=== PATIENT | female | born 1990 | race Caucasian/White ===

== ENCOUNTER 2017-11-22 01:41 | Emergency (ER) | payer OTHER ==
[~2017-11-22] VITALS: Ht 177.8 cm; Wt 77.0 kg
[~2017-11-22 01:41] MED LIST: TRAM50 PO
[2017-11-22 01:46] VITALS: BP 125/82; PULSE 89; RESP 18; TEMP 98.2; O2SAT 100
[2017-11-22] MEDS ORDERED: METOCLOPRAMIDE INJ 10 MG in SODIUM CHLORIDE 0.9% INJ 50 ML IV ONE (03:45)
[2017-11-22] MEDS ORDERED: SODIUM CHLOR 0.9% 1000 ML INJ 1,000 ML IV ONE (03:45)
--- NOTE | 2017-11-22 03:45 | PD ---
HPI Chief Complaint: Headache Time Seen by Provider: 03:34 Travel History International Travel<30 days: No Contact w/Intl Traveler<30days: No Traveled to known affect area: No History of Present Illness HPI 27yo F with PMH of migraine headache here with c/o right sided headache for 2 hours. Said it feels nothing like her usual headache and is sharp, severe. Also with twitching of right eye. Denies any fever, neck stiffness, visual changes, chest pain, sob, n/v, abdominal pain, focal weakness or numbness. Denies any history of family history of brain aneurysm. PFSH Past Medical History ADD: Yes Blood Disorders: No Depression: Yes Cancer: No Cardiovascular Problems: No Diminished Hearing: No Endocrine: No Gastrointestinal Disorders: Yes (HEART BURN) Genitourinary: Yes (KIDNEY STONE) Musculoskeletal: Yes (FX RIGHT WRIST) Neurologic: Yes (HEADACHE) Psychiatric: Yes Reproductive: Yes Respiratory: No Integumentary: Yes (F/U WITH DERMATOLOGY, SKIN ? ALLERGY) Immunizations Current: No Tetanus Vaccination: < 5 Years Influenza Vaccination: No ?: Unknown LMP: 11/09/17 : 2 Para: 1 Miscarriage: 1 Dilation and Curettage (D&C): Yes Past Surgical History Appendectomy: Yes (JUL 2013) Oral Surgery: Yes (WISDOM TEETH EXTRACTION) Pacemaker: No Other Surgery: Yes (APPENDECTOMY) Social History Alcohol Use: Yes (socially) Tobacco Use: Yes (3PPD) Substance Use: No Allergies-Medications (Allergen,Severity, Reaction): Coded Allergies: sulfamethoxazole (Unverified Allergy, Severe, Anaphylaxis, 11/22/17) trimethoprim (Unverified Allergy, Severe, Anaphylaxis, 11/22/17) *MDRO Multi-Drug Resistant Organism (Verified Adverse Reaction, Unknown, ) MRSA PCR Screen negative 01/23/15. Reported Meds & Prescriptions Reported Meds & Active Scripts Active Tylenol (Acetaminophen) 325 Mg Tab 650 Mg PO Q6H PRN Review of Systems Except as stated in HPI: all other systems reviewed are Neg Physical Exam Narrative GENERAL: 27yo F in mild distress. SKIN: Focused skin assessment warm/dry. HEAD: Atraumatic. Normocephalic. EYES: Pupils equal and round at 4mm bilaterally. EOMI. ENT: No nasal bleeding or discharge. Mucous membranes pink and moist. NECK: No nuchal rigidity. CARDIOVASCULAR: Regular rate and rhythm. No murmur appreciated. RESPIRATORY: No accessory muscle use. Clear to auscultation. Breath sounds equal bilaterally. GASTROINTESTINAL: Abdomen soft, non-tender, nondistended. MUSCULOSKELETAL: No obvious deformities. No clubbing. No cyanosis. No edema. NEUROLOGICAL: Awake and alert. No obvious cranial nerve deficits. Motor grossly within normal limits. Sensation intact. Normal speech. Data Data Last Documented VS Vital Signs Date Time Temp Pulse Resp B/P (MAP) Pulse Ox O2 Delivery O2 Flow Rate FiO2 11/22/17 03:33 88 18 100 Room Air 11/22/17 01:46 98.2 125/82 (96) Orders Orders Ed Urine Pregnancytest Poc (11/22/17 03:41) Ct Brain W/O Iv Contrast(Rout) (11/22/17 ) Metoclopramide Inj (Reglan Inj) (11/22/17 03:45) Sodium Chlor 0.9% 1000 Ml Inj (Ns 1000 M (11/22/17 03:45) Urinalysis - C+S If Indicated (11/22/17 03:59) Metoclopramide Inj (Reglan Inj) (11/22/17 04:45) Labs Laboratory Tests Test 11/22/17 04:00 Urine Color YELLOW Urine Turbidity CLEAR Urine pH 5.5 Urine Specific [place] 1.031 Urine Protein NEG mg/dL Urine Glucose (UA) NEG mg/dL Urine Ketones NEG mg/dL Urine Occult Blood NEG Urine Nitrite NEG Urine Bilirubin NEG Urine Leukocyte Esterase NEG Urine RBC 0-3 /hpf Urine Squamous Epithelial Cells 0-5 /hpf Urine Amorphous Sediment FEW Urine Mucus FEW /lpf Microscopic Urinalysis Comment CULT NOT INDICATED MDM Medical Decision Making Medical Screen Exam Complete: Yes Emergency Medical Condition: Yes Differential Diagnosis Migraine headache vs. sinus headache vs. tension headache vs. anxiety vs. ICH Narrative Course 27yo F with right sided headache for 2 hours. Pt said this headache is unlike anything she has had so CT brain was order since onset of headache is less than 6 hours. Pt is well appearing but insist this is nothing like her migraine. Ordered reglan, NS IVF and CT brain. Urine negative. Pt wanted to talk to me again and ask if I can check her urine because she just started having pain with urination today. UA showed few mucous. Negative. leukocyte. Culture not indicated. While waiting for CT scan, pt said she now wants to go home and she doesnt want the CT anymore. Pt understands risks of leaving against medical advice which include . AMA: The risks of leaving against medical advice without further evaluation treatment were discussed with the patient. These risks include cardiac dysfunction, cardiac dysrhythmia, possible heart attack, possible stroke or . The patient indicated understanding of these risks and appeared to have the capacity to make this decision. Diagnosis Primary Impression: Headache Patient Instructions: General Instructions Departure Forms: Tests/Procedures Additional Instructions: Please return to the ED if you change your mind. Med/Other Pt SpecificInfo: Prescription(s) given Scripts Acetaminophen (Tylenol) 325 Mg Tab 650 MG PO Q6H Y for PAIN SCALE 1 TO 4, #20 TAB 0 Refills Prov: Patrizia Trotter 11/22/17 Disposition: 07 AGAINST MEDICAL ADVICE Condition: Stable Patrizia Trotter DO Nov 22, 2017 03:45
[2017-11-22 04:15] LABS: BILIRUBIN, URINE NEG (NEG); BLOOD, URINE NEG (NEG); GLUCOSE,URINE NEG (NEG); KETONE, URINE NEG (NEG); NITRITE,URINE NEG (NEG); PH, URINE 5.5 (5.0-8.5); URINE LEUKOCYTE ESTERASE NEG (NEG)
[2017-11-22 04:25] LABS: MUCUS URINE FEW /lpf (OCC); URINE COLOR YELLOW (YELLW/STRAW)
[2017-11-22 04:26] LABS: AMORPHOUS SEDIMENT, URINE FEW; SQUAMOUS EPITHELIAL CELL URINE 0-5 /hpf (0-5)
[2017-11-22 04:28] LABS: RBC, URINE 0-3 /hpf (0-3)
[2017-11-22] MEDS ORDERED: METOCLOPRAMIDE HCL 10 MG/2 ML VIAL IV PUSH ONE (04:45)
[2017-11-22] MEDS ORDERED: TYLE325T PO (04:47)
[2017-11-22 04:55] VITALS: BP 122/84; PULSE 86; RESP 18; O2SAT 98
== END 2017-11-22 05:05 | disposition left against medical advice (07) ==
LOC: PHED 01:41
DX: R51 Headache (principal); F32.9 Major depressive disorder, single episode, unspecified; F17.210 Nicotine dependence, cigarettes, uncomplicated; Z88.2 Allergy status to sulfonamides; Z88.8 Allergy status to other drugs, medicaments and biological substances
CPT/HCPCS: 81001; 84703; 96360; 99283; J2765; J7030

== ENCOUNTER 2018-01-28 04:01 | Emergency (ER) | payer SELFPAY ==
[~2018-01-28] VITALS: Ht 177.8 cm; Wt 72.7 kg
[~2018-01-28 04:01] MED LIST changes: -TRAM50 PO; +TYLE325T PO
[2018-01-28 04:02] VITALS: BP 137/74; PULSE 96; RESP 18; TEMP 97.7; O2SAT 100
[2018-01-28] MEDS ORDERED: IOHEXOL 350 MG/ML 10 ML VIAL (for RAD DIAG) IVCONTRAST ONE (04:02)
[2018-01-28] MEDS ORDERED: KETOROLAC TROMETHAMINE 30 MG/ML (IVP) VIAL IVP ONE (04:30)
[2018-01-28] MEDS ORDERED: SODIUM CHLORIDE 0.9% FLUSH 10 ML FLUSH IV FLUSH PRN (04:30)
[2018-01-28 04:40] VITALS: O2SAT 96
--- NOTE | 2018-01-28 04:40 | PD ---
HPI Chief Complaint: Abdominal Pain Time Seen by Provider: 04:21 Travel History International Travel<30 days: No Contact w/Intl Traveler<30days: No Traveled to known affect area: No History of Present Illness HPI 27-year-old female complains of left-sided low rib cage pain and left-sided abdominal pain. Patient states that symptoms started about an hour ago. Patient stated pain is sharp pain localized to left lower rib cage area and left side abdomen. Patient denies any pain radiation. Patient states that the pain is worse with deep breathing. Patient denies any nausea vomiting diarrhea. Patient denies any dysuria frequency. Patient denies any vaginal discharge or bleeding. Patient denies any fever chills. Patient denies any trauma to the area. Patient states that she just finished with her menstruation period this month. Patient states that she has history kidney stone in the past. Patient status post appendectomy 2012. On a scale of 1-10 the pain is a 10. PFSH Past Medical History ADD: Yes Blood Disorders: No Depression: Yes Cancer: No Cardiovascular Problems: No Diminished Hearing: No Endocrine: No Gastrointestinal Disorders: Yes (HEART BURN) Genitourinary: Yes (KIDNEY STONE) Musculoskeletal: Yes (FX RIGHT WRIST) Neurologic: Yes (HEADACHE) Psychiatric: Yes Reproductive: Yes Respiratory: No Integumentary: Yes (F/U WITH DERMATOLOGY, SKIN ? ALLERGY) Immunizations Current: No Influenza Vaccination: No ?: LMP: 01/20/18 : 2 Para: 1 Miscarriage: 1 Dilation and Curettage (D&C): Yes Past Surgical History Appendectomy: Yes (JUL 2013) Oral Surgery: Yes (WISDOM TEETH EXTRACTION) Pacemaker: No Other Surgery: Yes (APPENDECTOMY) Social History Alcohol Use: Yes (socially) Tobacco Use: Yes (3PPD) Substance Use: No Allergies-Medications (Allergen,Severity, Reaction): Coded Allergies: sulfamethoxazole (Unverified Allergy, Severe, Anaphylaxis, 01/28/18) trimethoprim (Unverified Allergy, Severe, Anaphylaxis, 01/28/18) *MDRO Multi-Drug Resistant Organism (Verified Adverse Reaction, Unknown, ) MRSA PCR Screen negative 01/23/15. Reported Meds & Prescriptions Reported Meds & Active Scripts Active Tylenol (Acetaminophen) 325 Mg Tab 650 Mg PO Q6H PRN Review of Systems General / Constitutional: No: Fever Eyes: No: Visual changes HENT: No: Headaches Cardiovascular: No: Chest Pain or Discomfort Respiratory: No: Shortness of Breath Gastrointestinal: Positive: Abdominal Pain Genitourinary: No: Dysuria Musculoskeletal: No: Pain Skin: No Rash Neurologic: No: Weakness Psychiatric: No: Depression Endocrine: No: Polydipsia Hematologic/Lymphatic: No: Easy Bruising Physical Exam Narrative GENERAL: Well-nourished, well-developed patient. SKIN: Focused skin assessment warm/dry. HEAD: Normocephalic. EYES: No scleral icterus. No injection or drainage. NECK: Supple, trachea midline. No JVD or lymphadenopathy. CARDIOVASCULAR: Regular rate and rhythm without murmurs, gallops, or rubs. RESPIRATORY: Breath sounds equal bilaterally. No accessory muscle use. GASTROINTESTINAL: Abdomen soft, nondistended. Patient has moderate tenderness on palpation left lower quadrant of left lower quadrant of the abdomen. No rebound tenderness. No mass. MUSCULOSKELETAL: No cyanosis, or edema. BACK: Nontender without obvious deformity. No CVA tenderness. Data Data Last Documented VS Vital Signs Date Time Temp Pulse Resp B/P (MAP) Pulse Ox O2 Delivery O2 Flow Rate FiO2 01/28/18 04:40 96 Room Air 01/28/18 04:02 97.7 96 18 137/74 (95) Orders Orders Complete Blood Count With Diff (01/28/18 04:30) Comprehensive Metabolic Panel (01/28/18 04:30) Lipase (01/28/18 04:30) Urinalysis - C+S If Indicated (01/28/18 04:30) Ct Abd/Pel W Iv Contrast(Rout) (01/28/18 04:30) Iv Access Insert/Monitor (01/28/18 04:30) Ecg Monitoring (01/28/18 04:30) Oximetry (01/28/18 04:30) Sodium Chloride 0.9% Flush (Ns Flush) (01/28/18 04:30) Chest, Single Ap (01/28/18 04:30) Ketorolac Inj (Toradol Inj) (01/28/18 04:30) Ed Urine Pregnancytest Poc (01/28/18 04:30) Iohexol 350 Inj (Omnipaque 350 Inj) (01/28/18 04:02) Labs Laboratory Tests Test 01/28/18 04:30 White Blood Count 5.4 TH/MM3 Red Blood Count 4.97 MIL/MM3 Hemoglobin 15.2 GM/DL Hematocrit 44.6 % Mean Corpuscular Volume 89.8 FL Mean Corpuscular Hemoglobin 30.6 PG Mean Corpuscular Hemoglobin Concent 34.1 % Red Cell Distribution Width 13.2 % Platelet Count 169 TH/MM3 Mean Platelet Volume 9.1 FL Neutrophils (%) (Auto) 58.6 % Lymphocytes (%) (Auto) 31.0 % Monocytes (%) (Auto) 8.5 % Eosinophils (%) (Auto) 1.6 % Basophils (%) (Auto) 0.3 % Neutrophils # (Auto) 3.1 TH/MM3 Lymphocytes # (Auto) 1.7 TH/MM3 Monocytes # (Auto) 0.5 TH/MM3 Eosinophils # (Auto) 0.1 TH/MM3 Basophils # (Auto) 0.0 TH/MM3 CBC Comment DIFF FINAL Differential Comment Urine Color LIGHT-YELLOW Urine Turbidity CLEAR Urine pH 5.5 Urine Specific [place] 1.004 Urine Protein NEG mg/dL Urine Glucose (UA) NEG mg/dL Urine Ketones NEG mg/dL Urine Occult Blood NEG Urine Nitrite NEG Urine Bilirubin NEG Urine Urobilinogen LESS THAN 2.0 MG/DL Urine Leukocyte Esterase NEG Urine RBC LESS THAN 1 /hpf Urine WBC 1 /hpf Urine Squamous Epithelial Cells 4 /hpf Urine Bacteria RARE /hpf Microscopic Urinalysis Comment CULT NOT INDICATED Blood Urea Nitrogen 9 MG/DL Creatinine 0.76 MG/DL Random Glucose 73 MG/DL Total Protein 9.2 GM/DL Albumin 4.4 GM/DL Calcium Level 8.9 MG/DL Alkaline Phosphatase 83 U/L Aspartate Amino Transf (AST/SGOT) 15 U/L Alanine Aminotransferase (ALT/SGPT) 22 U/L Total Bilirubin 0.3 MG/DL Sodium Level 141 MEQ/L Potassium Level 3.7 MEQ/L Chloride Level 107 MEQ/L Carbon Dioxide Level 24.5 MEQ/L Anion Gap 10 MEQ/L Estimat Glomerular Filtration Rate 91 ML/MIN Lipase 189 U/L [facility] Medical Decision Making Medical Screen Exam Complete: Yes Emergency Medical Condition: Yes Interpretation(s) Last Impressions Chest X-Ray 01/28/18 0430 Signed Impressions: Service Date/Time: Sunday, January 28, 2018 04:41 - CONCLUSION: Normal examination. Florentin Peter Jr., MD Abdomen/Pelvis CT 01/28/18 0430 Signed Impressions: Service Date/Time: Sunday, January 28, 2018 05:23 - CONCLUSION: Normal examination. Florentin Peter Jr., MD CBC within normal limits. CMP within normal limits. UA is negative. Differential Diagnosis Differential diagnosis including musculoskeletal, nephrolithiasis, pyelonephritis, colitis, UTI, ovarian cyst, ovarian torsion, ectopic . Narrative Course 27-year-old female with left-sided abdominal pain and left lower rib cage pain. Diagnosis Primary Impression: Left flank pain Patient Instructions: General Instructions Additional Instructions: Take medication as directed. Follow-up with personal physician. Return if worse. Med/Other Pt SpecificInfo: Prescription(s) given Scripts Methocarbamol (Robaxin) 750 Mg Tab 750 MG PO QID for Muscle Spasm, #40 TAB 0 Refills Prov: Varinder Astudillo MD 01/28/18 Meloxicam (Mobic) 15 Mg Tab 15 MG PO DAILY for Pain, #20 TAB 0 Refills Prov: Varinder Astudillo MD 01/28/18 Disposition: 01 DISCHARGE HOME Condition: Stable Varinder Astudillo MD Jan 28, 2018 04:40
[2018-01-28 04:47] LABS: AUTOMATED NEUTROPHIL # 3.1 TH/MM3 (1.8-7.7); BASOPHIL % 0.3 % (0.0-2.0); EOSINOPHIL # 0.1 TH/MM3 (0-0.4); EOSINOPHIL % 1.6 % (0.0-4.0); HEMATOCRIT 44.6 % (35.0-46.0); HEMOGLOBIN 15.2 GM/DL (11.6-15.3); LYMPHOCYTE # 1.7 TH/MM3 (1.0-4.8); MEAN CELL VOLUME 89.8 FL (80.0-100.0); MEAN CORPUSCULAR HEMOGLOBIN 30.6 PG (27.0-34.0); MEAN CORPUSCULAR HGB CONC 34.1 % (32.0-36.0); MEAN PLATELET VOLUME 9.1 FL (7.0-11.0); MONO % 8.5 % (0.0-8.0); MONOCYTE # 0.5 TH/MM3 (0-0.9); NEUT % 58.6 % (16.0-70.0); PLATELET COUNT 169 TH/MM3 (150-450); RED BLOOD COUNT 4.97 MIL/MM3 (4.00-5.30); RED CELL DISTRIBUTION WIDTH 13.2 % (11.6-17.2); WHITE BLOOD COUNT 5.4 TH/MM3 (4.0-11.0)
[2018-01-28 05:05] LABS: ALBUMIN 4.4 GM/DL (3.4-5.0); ALT (GPT) 22 U/L (10-53); AST (GOT) 15 U/L (15-37); BICARBONATE 24.5 MEQ/L (21.0-32.0); BLOOD UREA NITROGEN 9 MG/DL (7-18); CALCIUM 8.9 MG/DL (8.5-10.1); CHLORIDE 107 MEQ/L (98-107); CREATININE 0.76 MG/DL (0.50-1.00); GLOMERULAR FILTRATION RATE 91 ML/MIN (>89); GLUCOSE,RANDOM 73 MG/DL (74-106); SODIUM (NA) 141 MEQ/L (136-145)
[2018-01-28 05:08] LABS: ALKALINE PHOSPHATASE 83 U/L (45-117); TOTAL BILIRUBIN ADULT 0.3 MG/DL (0.2-1.0); TOTAL PROTEIN 9.2 GM/DL (6.4-8.2)
[2018-01-28 05:23] LABS: BACTERIA, URINE RARE /hpf; BILIRUBIN, URINE NEG (NEG); BLOOD, URINE NEG (NEG); GLUCOSE,URINE NEG (NEG); KETONE, URINE NEG (NEG); NITRITE,URINE NEG (NEG); PH, URINE 5.5 (5.0-8.5); SQUAMOUS EPITHELIAL CELL URINE 4 /hpf (0-5); URINE COLOR LIGHT-YELLOW (YELLW/STRAW); URINE LEUKOCYTE ESTERASE NEG (NEG)
--- NOTE | 2018-01-28 05:35 | RADRPT ---
EXAM DATE/TIME: 01/28/2018 05:23 [facility] COMPARISON: No previous studies available for comparison. INDICATIONS : Left sided abdomen pain. IV CONTRAST: 90 cc Omnipaque 350 (iohexol) IV ORAL CONTRAST: No oral contrast ingested. RADIATION DOSE: 7.31 CTDIvol (mGy) MEDICAL HISTORY : Renal calculi. SURGICAL HISTORY : Appendectomy. ENCOUNTER: Initial ACUITY: 1 day PAIN SCALE: 10/10 LOCATION: Left upper quadrant lower qaudrant TECHNIQUE: Volumetric scanning of the abdomen and pelvis was performed. Using automated exposure control and ad justment of the mA and/or kV according to patient size, radiation dose was kept as low as reasonably achievable to obtain optimal diagnostic quality images. DICOM format image data is available electro nically for review and comparison. FINDINGS: LOWER LUNGS: The visualized lower lungs are clear. LIVER: Homogeneous density without lesion. There is no dilation of the biliary tree. No calcified gallston es. SPLEEN: Normal size without lesion. PANCREAS: Within normal limits. KIDNEYS: Normal in size and shape. There is no mass, stone or hydronephrosis. ADRENAL GLANDS: Within normal limits. VASCULAR: There is no aortic aneurysm. BOWEL/MESENTERY: The stomach, small bowel, and colon demonstrate no acute abnormality. There is no free intraperitone al air or fluid. ABDOMINAL WALL: Within normal limits. RETROPERITONEUM: There is no lymphadenopathy. BLADDER: No wall thickening or mass. REPRODUCTIVE: Within normal limits. INGUINAL: There is no lymphadenopathy or hernia. MUSCULOSKELETAL: Within normal limits for patient age. CONCLUSION: Normal examination. Florentin Peter Jr., MD on January 28, 2018 at 5:32 Board Certified Radiologist. This report was verified electronically.
--- NOTE | 2018-01-28 05:38 | RADRPT ---
EXAM DATE/TIME: 01/28/2018 04:41 [facility] COMPARISON: No previous studies available for comparison. INDICATIONS : Left side chest pain with shortness of breath. MEDICAL HISTORY : Smoker. SURGICAL HISTORY : None. ENCOUNTER: Initial ACUITY: 1 day PAIN SCORE: 7/10 LOCATION: Left chest FINDINGS: A single view of the chest demonstrates the lungs to be symmetrically aerated without evidence of mas s, infiltrate or effusion. The cardiomediastinal contours are unremarkable. Osseous structures are intact. No free air below either hemidiaphragm. CONCLUSION: Normal examination. Florentin Peter Jr., MD on January 28, 2018 at 5:36 Board Certified Radiologist. This report was verified electronically.
[2018-01-28] MEDS ORDERED: MOBI15TA PO (07:09)
[2018-01-28] MEDS ORDERED: ROBA750T PO (07:09)
== END 2018-01-28 07:27 | disposition home or self-care (01) ==
LOC: NEPC 04:01
DX: R10.9 Unspecified abdominal pain (principal); F98.8 Other specified behavioral and emotional disorders with onset usually occurring in childhood and adolescence; F32.9 Major depressive disorder, single episode, unspecified; F17.210 Nicotine dependence, cigarettes, uncomplicated; Z87.442 Personal history of urinary calculi
CPT/HCPCS: 71045; 74177; 80053; 81001; 83690; 84703; 85025; 96374; 99285; J1885; Q9967